=== PATIENT | female | born 1990 | race Caucasian/White ===

== ENCOUNTER 2017-08-13 11:35 | Emergency (ER) | payer SELFPAY ==
[~2017-08-13] VITALS: Ht 167.6 cm; Wt 100.0 kg
[2017-08-13 11:36] VITALS: BP 146/71; PULSE 87; RESP 16; TEMP 98.2; O2SAT 97
[2017-08-13 13:02] LABS: BACTERIA, URINE RARE /hpf; BILIRUBIN, URINE NEG (NEG); BLOOD, URINE NEG (NEG); GLUCOSE,URINE NEG (NEG); KETONE, URINE NEG (NEG); NITRITE,URINE NEG (NEG); SQUAMOUS EPITHELIAL CELL URINE 6 /hpf (0-5); URINE COLOR YELLOW (YELLW/STRAW); URINE LEUKOCYTE ESTERASE NEG (NEG)
[2017-08-13] MEDS ORDERED: KETOROLAC TROMETHAMINE 60 MG/2 ML (IM) VIAL IM ONE (13:15)
[2017-08-13] MEDS ORDERED: BACL10TA PO (13:17)
[2017-08-13] MEDS ORDERED: IBUP1TAB7 PO (13:17)
--- NOTE | 2017-08-13 13:18 | PD ---
HPI Chief Complaint: Back/ Neck Pain or Injury Time Seen by Provider: 13:15 Travel History International Travel<30 days: No Contact w/Intl Traveler<30days: No Traveled to known affect area: No History of Present Illness HPI 27-year-old female presents for evaluation of back pain. She reports that prior to arrival she was carrying approximately 50 pounds worth of bags and she sat down and afterwards felt a popping sensation in her back. She denies mid to lower back pain which is aching, worse with movement, somewhat improved when she is not moving. She denies any abdominal pain, lower extremity numbness or tingling or weakness or radicular pain. Denies any bowel or bladder incontinence bridge she reports that she has had similar pain in the past. She has no other complaints at this time. [facility] Past Medical History Anxiety: Yes Depression: Yes Psychiatric: Yes (PRIOR PSYCH VISITS ) ?: Unknown : 3 Para: 3 Past Surgical History Section: No Gynecologic Surgery: Yes (gest diabities) Other Surgery: No (PER PATIENT) Social History Alcohol Use: No Tobacco Use: Yes (5 CIG/DAY) Substance Use: No (Hx IV drug abuse) Allergies-Medications (Allergen,Severity, Reaction): Coded Allergies: No Known Allergies (Unverified , 06/17/16) Reported Meds & Prescriptions Reported Meds & Active Scripts Active Ibuprofen 800 Mg Tab 800 Mg PO Q6HR PRN Baclofen 10 Mg Tab 10 Mg PO Q8HR 10 Days Review of Systems Except as stated in HPI: all other systems reviewed are Neg Physical Exam Narrative GENERAL: Well-developed well-nourished female in no acute distress SKIN: Warm and dry. CARDIOVASCULAR: Regular rate and rhythm. No murmur appreciated. RESPIRATORY: No accessory muscle use. Clear to auscultation. Breath sounds equal bilaterally. GASTROINTESTINAL: Abdomen soft, non-tender, nondistended. Hepatic and splenic margins not palpable. MUSCULOSKELETAL: No obvious deformities. There is no reproducible tenderness to palpation along the thoracic, lumbar midline or paravertebral musculature. The patient maintains 5 out of 5 muscle strength in the lower extremity muscle groups. NEUROLOGICAL: Awake and alert. No obvious cranial nerve deficits. Motor grossly within normal limits. Normal speech. Data Data Last Documented VS Vital Signs Date Time Temp Pulse Resp B/P (MAP) Pulse Ox O2 Delivery O2 Flow Rate FiO2 08/13/17 11:36 98.2 87 16 146/71 (96) 97 Orders Orders Urinalysis - C+S If Indicated (08/13/17 11:57) Ed Urine Pregnancytest Poc (08/13/17 11:57) Ketorolac Inj (Toradol Inj) (08/13/17 13:15) Labs Laboratory Tests Test 08/13/17 12:00 Urine Color YELLOW Urine Turbidity CLEAR Urine pH 6.0 Urine Specific [place] 1.029 Urine Protein NEG mg/dL Urine Glucose (UA) NEG mg/dL Urine Ketones NEG mg/dL Urine Occult Blood NEG Urine Nitrite NEG Urine Bilirubin NEG Urine Urobilinogen LESS THAN 2.0 MG/DL Urine Leukocyte Esterase NEG Urine WBC 2 /hpf Urine Squamous Epithelial Cells 6 /hpf Urine Bacteria RARE /hpf Microscopic Urinalysis Comment CULT NOT INDICATED MDM Medical Decision Making Medical Screen Exam Complete: Yes Emergency Medical Condition: Yes Medical Record Reviewed: Yes Differential Diagnosis Thoracolumbar strain versus spasm versus scoliosis versus spinal stenosis versus herniated nucleus pulposus Narrative Course Patient's examination and history are consistent with thoracolumbar strain. The patient will be discharged with a short course of muscle relaxants and NSAIDs. 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 She may benefit from outpatient physical therapy. Recommended follow-up with primary care physician. Diagnosis Primary Impression: Back strain Referrals: [facility] Departure Forms: Tests/Procedures, Work Release Enter return to work date: Aug 15, 2017 Additional Instructions: Medication as needed. Take ibuprofen with meals. Do not drive or drink alcohol when taking baclofen. Avoid heavy lifting, strenuous activity. Follow- up with primary care physician in one to 2 weeks. Return for any emergent medical conditions. Med/Other Pt SpecificInfo: Prescription(s) given Scripts Ibuprofen (Ibuprofen) 800 Mg Tab 800 MG PO Q6HR Y for PAIN, #40 TAB 0 Refills Prov: Petra Becerra MD 08/13/17 Baclofen (Baclofen) 10 Mg Tab 10 MG PO Q8HR for 10 Days, TAB 0 Refills Prov: Petra Becerra MD 08/13/17 Disposition: 01 DISCHARGE HOME Condition: Stable Christophe Bautista Aug 13, 2017 13:18
== END 2017-08-13 15:37 | disposition home or self-care (01) ==
LOC: NEPK 11:35
DX: S29.012A Strain of muscle and tendon of back wall of thorax, initial encounter (principal); F41.9 Anxiety disorder, unspecified; F32.9 Major depressive disorder, single episode, unspecified; F17.210 Nicotine dependence, cigarettes, uncomplicated; X50.0XXA Overexertion from strenuous movement or load, initial encounter
CPT/HCPCS: 81001; 84703; 96372; 99283; J1885